=== PATIENT | male | born 1970 ===

== ENCOUNTER 2018-07-29 07:21 | Observation (INO) | payer BC ==
[2018-07-29] MEDS ORDERED: Sodium Chloride 0.9% 1,000 ML IV STA (07:31)
--- NOTE | 2018-07-29 07:38 | ED PDOC ---
HPI: Abdomen Time Seen by Provider: 07/29/18 07:24 Chief Complaint (Provider): left flank and abdominal pain History Per: Patient History/Exam Limitations: no limitations Onset/Duration Of Symptoms: Hrs (06:00 this morning) Current Symptoms Are (Timing): Still Present Location Of Pain/Discomfort: LLQ Associated Symptoms: Urinary Symptoms (urgency ). denies: Fever, Chills, Nausea, Vomiting, Diarrhea Additional Complaint(s): Anup Watkins is a 48 year old male, with a past medical history of kidney stones and peptic ulcer disease, who presents to the emergency department complaining of left flank and LLQ abdominal pain onset since 06:00 this morning associated with urinary urgency. Patient reports a similar type of pain from previous time he's had kidney stones. He denies any fever, chills, nausea, vomit or diarrhea. No further medical complaints. PMD: None provided. Past Medical History Reviewed: Historical Data, Nursing Documentation, Vital Signs Vital Signs: Last Vital Signs Temp 98.0 F 07/29/18 07:24 Pulse 90 07/29/18 07:24 Resp 19 07/29/18 07:24 BP 146/92 H 07/29/18 07:24 Pulse Ox 100 07/29/18 07:24 - Medical History PMH: Kidney Stones Other PMH: Peptic ulcer disease - Surgical History Surgical History: No Surg Hx - Family History Family History: States: Unknown Family Hx - Social History Current smoker - smoking cessation education provided: No Alcohol: None Drugs: Denies - Allergies Allergies/Adverse Reactions: Allergies Allergy/AdvReac Type Severity Reaction Status Date / Time acetaminophen [From Tylenol] Allergy RASH Verified 07/29/18 07:59 Review of Systems ROS Statement: Except As Marked, All Systems Reviewed And Found Negative Constitutional: Negative for: Fever, Chills Gastrointestinal: Positive for: Abdominal Pain (LLQ and left flank). Negative for: Nausea, Vomiting, Diarrhea Genitourinary Male: Positive for: Other (urgency) Physical Exam - Reviewed Nursing Documentation Reviewed: Yes Vital Signs Reviewed: Yes - Physical Exam Appears: Positive for: No Acute Distress Head Exam: Positive for: ATRAUMATIC, NORMAL INSPECTION, NORMOCEPHALIC Skin: Positive for: Normal Color, Warm, Dry Eye Exam: Positive for: Normal appearance, EOMI, PERRL Neck: Positive for: Normal, Painless ROM Cardiovascular/Chest: Positive for: Regular Rate, Rhythm. Negative for: Murmur Respiratory: Positive for: Normal Breath Sounds. Negative for: Respiratory Distress Gastrointestinal/Abdominal: Positive for: Normal Exam, Soft. Negative for: Tenderness, Guarding, Rebound Back: Positive for: Normal Inspection. Negative for: L CVA Tenderness, R CVA Tenderness, Vertebral Tenderness Extremity: Positive for: Normal ROM (Full ROM of all extremities). Negative for: Tenderness, Deformity, Swelling Neurologic/Psych: Positive for: Alert, Oriented. Negative for: Motor/Sensory Deficits - Laboratory Results Result Diagrams: 07/29/18 07:49 07/29/18 07:40 - ECG O2 Sat by Pulse Oximetry: 100 (RA) Pulse Ox Interpretation: Normal Medical Decision Making Medical Decision Making: Time: 07:24 Initial Plan: --Abd & Pelvis w/o PO or IV Contrast [CT] --CMP --Urine dipstick --CBC w/ differential --Sodium Chloride 1,000 ml IV 150 mls/hr --Toradol 30 mg IVP --Urine culture --Reevaluation 10:12 Abdomen/Pelvis CT FINDINGS: LOWER THORAX: Unremarkable. LIVER: A sub cm calcified granuloma or other calcifications in the inferior right lobe liver with the pattern parenchyma otherwise unremarkable in this unenhanced exam. GALLBLADDER AND BILE DUCTS: Unremarkable. PANCREAS: Unremarkable. No gross lesion or ductal dilatation. SPLEEN: Unremarkable. ADRENALS: Unremarkable. No mass. KIDNEYS AND URETERS: There is a 9.6 mm calculus identified at the left urinary bladder base or possibly distal left UVJ with fullness appreciated at the left renal pelvis but not at the calyceal system diffusely or the left ureter. Minimal left perinephric changes are appreciated with the overall pattern suggesting relieved left-sided obstructive uropathy. Two tiny punctate intrarenal calculi identified at the midpole left kidney with a solitary focus 3 mm greatest dimension at the lower pole. None are appreciated at the right. VASCULATURE: Unremarkable. No aortic aneurysm. No aortic atherosclerotic calcification or mural plaque present. BOWEL: Evaluation of the gastrointestinal tract is limited due to the lack of oral contrast administration. The stomach is collapsed limiting evaluation. No obstruction. No gross mural thickening. Moderate fecal loading right hemicolon. APPENDIX: Unremarkable. Normal appendix. PERITONEUM: Unremarkable. No free fluid. No free air. LYMPH NODES: Shotty central mesenteric and medial pericecal lymph nodes may indicate mesenteric adenitis. BLADDER: Unremarkable. REPRODUCTIVE: Unremarkable. BONES: No acute fracture. OTHER FINDINGS: None. IMPRESSION: 1. 9.6 mm calculus at the left urinary bladder base is favored over distal left UVJ calculus with likely relieved obstructive uropathy appreciated at the left kidney and ureter. Limited residual left renal pelvis dilatation is identified as discussed above. 2. Three punctate intrarenal calculi identified in the mid and lower pole left kidney with none identified at the right. No right-sided obstructive uropathy. 3. Tiny hepatic granuloma or other calcification. 4. Potential mesenteric adenitis. Scribe Attestation: Documented by Nitish Mcmillan, acting as a scribe for Kyle Reis MD. Provider Scribe Attestation: All medical record entries made by the Scribe were at my direction and personally dictated by me. I have reviewed the chart and agree that the record accurately reflects my personal performance of the history, physical exam, medical decision making, and the department course for this patient. I have also personally directed, reviewed, and agree with the discharge instructions and disposition. Disposition - Clinical Impression Clinical Impression: Kidney stone - Patient ED Disposition Is Patient to be Admitted: Yes - Disposition Disposition Time: 11:00 Condition: FAIR - Pt Status Changed To: Hospital Disposition Of: Observation - POA Present On Arrival: None
[2018-07-29 08:04] LABS: BASO % 0.5 % (0.0-2.0); EOS # 0.1 K/uL (0.0-0.7); EOS % 0.9 % (0.0-4.0); HEMOGLOBIN 15.3 g/dL (12.0-18.0); LYMPH # 2.5 K/uL (1.0-4.3); LYMPH % 34.3 % (20.0-40.0); MEAN CELL VOLUME 99.3 fl (80.0-94.0); MEAN CORPUSCULAR HEMOGLOBIN 32.9 pg (27.0-31.0); MEAN CORPUSCULAR HGB CONC 33.2 g/dL (33.0-37.0); MEAN PLATELET VOLUME 9.7 fl (7.2-11.7); MONO # 0.5 K/uL (0.0-0.8); MONO % 7.2 % (0.0-10.0); NEUT # 4.2 K/uL (1.8-7.0); NEUT % 57.1 % (50.0-75.0); NRBC % 0.5 % (0.0-0.0); RBC 4.64 Mil/uL (4.40-5.90); RED CELL DISTRIBUTION WIDTH 13.3 % (11.5-14.5); WHITE BLOOD COUNT 7.4 K/uL (4.8-10.8)
[2018-07-29 08:08] LABS: ALB/GLOB RATIO 1.5 (1.0-2.1); ALBUMIN 4.6 g/dL (3.5-5.0); ALT/SGPT 38 U/L (21-72); AST/SGOT 25 U/L (17-59); BLOOD UREA NITROGEN 27 mg/dl (9-20); CALCIUM 9.2 mg/dL (8.4-10.2); GFR NON-AFRICAN AMERICAN > 60
[2018-07-29] MEDS ORDERED: Morphine 4 MG/ML VIAL IVP ONE (08:19)
[2018-07-29] MEDS ORDERED: Morphine 4 MG/ML VIAL ONE (08:52)
--- NOTE | 2018-07-29 10:16 | CT ---
Date of service: 07/29/2018 PROCEDURE: CT Abdomen and Pelvis without intravenous contrast HISTORY: r/o kidney stone COMPARISON: None. TECHNIQUE: Helical CT of the abdomen and pelvis was performed without oral or intravenous contrast as per referring physician request. Coronal and sagittal reformats were generated. Contrast dose: None Radiation dose: Total exam DLP = 503.31 mGy-cm. This CT exam was performed using one or more of the following dose reduction techniques: Automated exposure control, adjustment of the mA and/or kV according to patient size, and/or use of iterative reconstruction technique. FINDINGS: LOWER THORAX: Unremarkable. LIVER: A sub cm calcified granuloma or other calcifications in the inferior right lobe liver with the pattern parenchyma otherwise unremarkable in this unenhanced exam. GALLBLADDER AND BILE DUCTS: Unremarkable. PANCREAS: Unremarkable. No gross lesion or ductal dilatation. SPLEEN: Unremarkable. ADRENALS: Unremarkable. No mass. KIDNEYS AND URETERS: There is a 9.6 mm calculus identified at the left urinary bladder base or possibly distal left UVJ with fullness appreciated at the left renal pelvis but not at the calyceal system diffusely or the left ureter. Minimal left perinephric changes are appreciated with the overall pattern suggesting relieved left-sided obstructive uropathy. Two tiny punctate intrarenal calculi identified at the midpole left kidney with a solitary focus 3 mm greatest dimension at the lower pole. None are appreciated at the right. VASCULATURE: Unremarkable. No aortic aneurysm. No aortic atherosclerotic calcification or mural plaque present. BOWEL: Evaluation of the gastrointestinal tract is limited due to the lack of oral contrast administration. The stomach is collapsed limiting evaluation. No obstruction. No gross mural thickening. Moderate fecal loading right hemicolon. APPENDIX: Unremarkable. Normal appendix. PERITONEUM: Unremarkable. No free fluid. No free air. LYMPH NODES: Shotty central mesenteric and medial pericecal lymph nodes may indicate mesenteric adenitis. BLADDER: Unremarkable. REPRODUCTIVE: Unremarkable. BONES: No acute fracture. OTHER FINDINGS: None. IMPRESSION: 1. 9.6 mm calculus at the left urinary bladder base is favored over distal left UVJ calculus with likely relieved obstructive uropathy appreciated at the left kidney and ureter. Limited residual left renal pelvis dilatation is identified as discussed above. 2. Three punctate intrarenal calculi identified in the mid and lower pole left kidney with none identified at the right. No right-sided obstructive uropathy. 3. Tiny hepatic granuloma or other calcification. 4. Potential mesenteric adenitis.
[2018-07-29] MEDS ORDERED: Ciprofloxacin 400mg/200ml D5W 400 MG/200 ML BAG IVPB STA (11:26)
[2018-07-29] MEDS ORDERED: Ciprofloxacin 400mg/200ml D5W 400 MG/200 ML BAG IVPB ONE (12:10)
[2018-07-29] MEDS ORDERED: Succinylcholine 200 mg/10 ml Inj IV ONE (13:19)
[2018-07-29] MEDS ORDERED: Lidocaine 4% (Laryng-O-Jet) Kit MM ONE (13:19)
[2018-07-29] MEDS ORDERED: ePHEDrine 50 mg/ml Inj ONE (13:19)
[2018-07-29] MEDS ORDERED: Propofol 10 mg/ml Inj (20 ML) ONE ×2 (13:19→14:18)
[2018-07-29] MEDS ORDERED: Midazolam 2 MG/2 ML VIAL ONE (13:19)
[2018-07-29] MEDS ORDERED: Lidocaine 2% Jelly (Uro-Jet) ONE (13:24)
[2018-07-29] MEDS ORDERED: cefTRIAXone (Rocephin) 1 gm Inj ONE (13:25)
[2018-07-29] MEDS ORDERED: Lactated Ringer's 1,000 ML IV ONE (13:25)
[2018-07-29] MEDS ORDERED: Lactated Ringer's 1,000 ML IV SCH (14:30)
--- NOTE | 2018-07-29 15:04 | RAD ---
Date of service: 07/29/2018 PROCEDURE: Intraoperative Fluoroscopy. HISTORY: CYSTO: LEFT STENT PLACEMENT FINDINGS: Fluoroscopic assistance was provided for left stent placement. Please refer to the operative report from CLAUDIA Vela.
[2018-07-29 16:50] VITALS: RESP 18
[2018-07-29 18:03] VITALS: BP 120/70; PULSE 74; TEMP 98; O2SAT 99
--- NOTE | 2018-07-30 01:33 | OP ---
PROCEDURE DATE: 07/29/2018 PREOPERATIVE DIAGNOSIS: Acute left renal colic with left ureteral calculus. POSTOPERATIVE DIAGNOSIS: Acute left renal colic with left ureteral calculus. PROCEDURE PERFORMED: Cystoscopy, stone manipulation, and J-stent placement. SURGEON: Quintin Liu MD DESCRIPTION OF PROCEDURE: Under general anesthesia, the patient was placed on the operating room table in a dorsal lithotomy position. The area of the groin was draped and prepped in a sterile manner. Using a ureteroscope, I entered into the blood atraumatically. There was no stone in the bladder. He has a very pronounced and raised almost ureterocele looking ureteral orifice on the left side. I had used an angle tip guide wire to get into access in to the ureter. Once I did, I followed with the ureteroscope. There was an embedded stone in that area. I decided at this point to leave a 6-Korean multi-length double-J stent to create a ureteral dilation for eventual stone manipulation. Once this was done, I removed it. Incidentally, he had a stricture of the distal urethra, which I had to dilate with 22-Korean before I was able to get into the 20-Korean cystoscope and the J-stent to again in fluoroscopic good position. The patient was taken from the operating room in good condition. Quintin Liu MD
== END 2018-07-29 18:30 | disposition home or self-care (01) ==
LOC: H.ER 07:21 → H.ERHOLD 11:25
PROVIDERS: ADMIT Urology; ATTEND Urology
DX: N20.2 Calculus of kidney with calculus of ureter (principal); N13.9 Obstructive and reflux uropathy, unspecified; Z87.442 Personal history of urinary calculi; Z87.11 Personal history of peptic ulcer disease
CPT/HCPCS: 52320; 52332; 74176; 80053; 85025; 87040; 87086; 96374; 96375; 99283; C1769; C2617; G0378; J0330; J0744; J1170; J1885; J2001; J2250; J2270; J2704; J3010; J7030; J7120

== ENCOUNTER 2018-08-16 07:34 | Day surgery (SDC) | payer BC ==
[2018-08-14 14:40] VITALS: BMI 23.0
[2018-08-16] MEDS ORDERED: Lactated Ringer's 1,000 ML IV ONE (08:23)
[2018-08-16] MEDS ORDERED: Propofol 10 mg/ml Inj (20 ML) ONE (10:55)
[2018-08-16] MEDS ORDERED: Midazolam 2 MG/2 ML VIAL ONE (10:55)
[2018-08-16] MEDS ORDERED: Lidocaine 2% MPF (5 ml) Inj ONE (10:56)
[2018-08-16] MEDS ORDERED: Lidocaine 2% Jelly (Uro-Jet) ONE (10:57)
[2018-08-16] MEDS ORDERED: cefTRIAXone (Rocephin) 1 gm Inj ONE (10:58)
[2018-08-16] MEDS ORDERED: cefTRIAXone (Rocephin) 1 gm Inj IM ONE (11:05)
[2018-08-16] MEDS ORDERED: Lidocaine 2% Jelly (Uro-Jet) TOP ONE (11:11)
[2018-08-16] MEDS: HYDROmorphone 0.5 mg/0.5 ml ISec IVP PRN ×2 (12:00→12:40)
[2018-08-16 12:45] VITALS: RESP 18
[2018-08-16 14:18] VITALS: BP 119/74; PULSE 62; TEMP 98; O2SAT 96
--- NOTE | 2018-08-16 16:32 | OP ---
PROCEDURE DATE: 08/16/2018 PREOPERATIVE DIAGNOSIS: Post left lithotripsy with residual stones. POSTOPERATIVE DIAGNOSIS: Post left lithotripsy with residual stones. PROCEDURE PERFORMED: Cystoscopy, removal of the double-J stent, left ureteroscopy, stone basketing. SURGEON: Quintin Liu MD DESCRIPTION OF PROCEDURE: The patient was placed on the operating room table in the dorsal lithotomy position. The area of the groin was draped and prepped in a sterile manner. At this time, I entered into the bladder, removed the existing double-J stent, then went back with a ureteroscope and saw that there were large fragments of stone still left in the ureter, the largest of which probably measures about 7 mm in size. I was able to basket that out and then, there were multiple smaller pieces between 2 and 4 mm, which were removed completely. Once this was done, I did a second and third look up to the renal pelvis, did not see any residual stones. The patient then was taken from the operating room in good condition. The stone will be sent for specimen analysis. Quintin Liu MD
== END 2018-08-16 14:40 | disposition home or self-care (01) ==
LOC: H.OPSURG 07:34
PROVIDERS: ATTEND Urology
DX: N23 Unspecified renal colic (principal); J45.909 Unspecified asthma, uncomplicated; K21.9 Gastro-esophageal reflux disease without esophagitis; K27.9 Peptic ulcer, site unspecified, unspecified as acute or chronic, without hemorrhage or perforation
CPT/HCPCS: 52332; 52352; 82355; 88304; C1769; J0696; J1170; J2250; J2405; J2704; J3010; J7120